=== PATIENT | female | born 1945 | race Caucasian/White ===

== ENCOUNTER → 2017-08-10 | Outpatient (CLI) | payer OTHER ==
[~2017-08-10] MED LIST: ADULT LOW DOSE81 MG PO; ALDACTONE50 MG PO; COLACE100 MG PO; FIBERCON CHEWA625 MG PO; FOLIC ACID 40400 MCG PO; FOSAMAX 70 MG T70 MG PO; HUMIRA40 MG/0.8 SQ; LEVOTHYROXINE 0.15MG PO; LIPITOR10 MG PO; LOTENSIN20 MG PO; LOTENSIN40 MG PO; LOTREL 5-20 MG1 EACH PO; LOVASTATIN 20 M20 MG PO; MIRALAX17 GM PO; NORVASC10 MG PO; NORVASC5 MG PO; OS-CAL 500+D C1 EACH PO; OXYCODONE HCL 55 MG PO; PHENERGAN 25 MG25 M1 PO; SYNTHROID125 MCG PO; SYNTHROID175 MCG PO; TENORMIN50 MG PO; VICODIN 5-5001 EACH PO; VITAMIN A DAY1 EACH PO; VITAMIN D1000 UNI1 PO; VITAMIN D2000 UNIT PO; ZOCOR40 MG PO
== END ==
LOC: M.RAD 13:16
DX: M85.88 Other specified disorders of bone density and structure, other site (principal); M81.0 Age-related osteoporosis without current pathological fracture; E28.8 Other ovarian dysfunction; Z90.89 Acquired absence of other organs

== ENCOUNTER → 2019-01-17 | Outpatient (CLI) | payer OTHER | LOC: M.RAD 11:38 | DX: Z12.31 Encounter for screening mammogram for malignant neoplasm of breast (principal) ==

== ENCOUNTER → 2019-11-16 | Outpatient (CLI) | payer MEDICARE | LOC: M.RAD 13:30 | DX: M85.88 Other specified disorders of bone density and structure, other site (principal); Z78.0 Asymptomatic menopausal state ==

== ENCOUNTER → 2020-02-03 | Outpatient (CLI) | payer MEDICARE | LOC: M.RAD 10:05 | PROVIDERS: ATTEND Registered Nurse Diabetes Educator | DX: Z12.31 Encounter for screening mammogram for malignant neoplasm of breast (principal) ==

== ENCOUNTER → 2020-09-17 | Outpatient (CLI) | payer MEDICARE | LOC: M.ULTRA 08:55 | PROVIDERS: ATTEND Registered Nurse Diabetes Educator | DX: M79.604 Pain in right leg (principal); M79.605 Pain in left leg ==

== ENCOUNTER → 2021-04-08 | Outpatient (CLI) | payer MEDICARE | LOC: M.RAD 09:31 | PROVIDERS: ATTEND Registered Nurse Diabetes Educator | DX: Z12.31 Encounter for screening mammogram for malignant neoplasm of breast (principal) ==